=== PATIENT | male | born 1995 | race Two or more races ===

== ENCOUNTER 2019-06-26 22:47 | Emergency (ER) | payer OTHER ==
[~2019-06-26] VITALS: Ht 177.8 cm; Wt 83.5 kg
[2019-06-27] MEDS ORDERED: TETRACAINE HCL 0.5% OPTH(EYE) SOLN 4ML LEFTEYE ONE (00:45)
[2019-06-27] MEDS ORDERED: FLUORESCEIN SOD 1 MG TEST STRIP LEFTEYE ONE (00:45)
[2019-06-27 00:47] VITALS: BP 127/64
== END 2019-06-27 00:58 | disposition home or self-care (01) ==
LOC: ER 22:51
DX: T15.02XA Foreign body in cornea, left eye, initial encounter (principal); X58.XXXA Exposure to other specified factors, initial encounter; Y93.89 Activity, other specified; Y92.89 Other specified places as the place of occurrence of the external cause; Y99.8 Other external cause status
CPT/HCPCS: 65220